=== PATIENT | female | born 1995 | race Caucasian/White ===

== ENCOUNTER 2018-01-23 18:18 | Emergency (ER) | payer OTHER ==
[2018-01-23 20:13] VITALS: BP 95/71
--- NOTE | 2018-01-23 20:25 | UC ---
Throat Pain/Nasal Soham HPI - HPI Summary HPI Summary: 23 year old woman comes in with a concern of sinusitis. She has facial tenderness and rhinorrhea. Mild sore throat. No fevers. The symptoms bothering her for 2 days. She tells me she has chronic rhinorrhea and it's been worse the last 2 days. No wheezing no shortness of breath. She does take an antihistamine and pseudoephedrine. - History of Current Complaint Chief Complaint: UCRespiratory Stated Complaint: SINUS COMPLAINT Time Seen by Provider: 01/23/18 20:09 Hx Last Menstrual Period: 02/09/18 Pain Intensity: 7 - Allergies/Home Medications Allergies/Adverse Reactions: Allergies Allergy/AdvReac Type Severity Reaction Status Date / Time No Known Allergies Allergy Verified 01/23/18 20:04 Home Medications: Home Medications L.acidoph,Paracasei, B.lactis [Probiotic] 1 each PO DAILY 01/23/18 [History Confirmed 01/23/18] Pseudoephedrine TAB* [Sudafed TAB*] 30 mg PO Q6H PRN 01/23/18 [History Confirmed 01/23/18] PMH/Surg Hx/FS Hx/Imm Hx Previously Healthy: Yes Other Respiratory History: SINUSITIS - Surgical History Surgical History: None - Family History Known Family History: Positive: Diabetes - father Negative: Cardiac Disease, Hypertension - Social History Alcohol Use: Occasionally Substance Use Type: None Smoking Status (MU): Never Smoked Tobacco Review of Systems Constitutional: Negative Skin: Negative Eyes: Negative ENT: Nasal Discharge, Sinus Congestion, Sinus Pain/Tenderness Respiratory: Negative Cardiovascular: Negative Gastrointestinal: Negative Genitourinary: Negative Motor: Negative Neurovascular: Negative, Decreased Sensation Musculoskeletal: Negative Neurological: Negative Psychological: Negative Is Patient Immunocompromised?: No All Other Systems Reviewed And Are Negative: Yes Physical Exam Triage Information Reviewed: Yes Appearance: Well-Appearing, No Pain Distress, Well-Nourished Vital Signs: Initial Vital Signs Temp 98.3 F 01/23/18 20:07 Pulse 73 01/23/18 20:07 Resp 16 01/23/18 20:07 BP 95/71 01/23/18 20:07 Pulse Ox 100 01/23/18 20:07 Vital Signs Reviewed: Yes Eyes: Positive: Conjunctiva Clear ENT: Positive: Pharyngeal erythema, Nasal congestion, Nasal drainage Neck exam: Normal Neck: Positive: Supple Respiratory Exam: Normal Respiratory: Positive: Lungs clear, Normal breath sounds Cardiovascular: Positive: RRR Musculoskeletal Exam: Normal Musculoskeletal: Positive: Strength Intact, ROM Intact Neurological Exam: Normal Neurological: Positive: Alert Psychological Exam: Normal Skin Exam: Normal Throat Pain/Nasal Course/Dx - Course Course Of Treatment: DISCUSSED VIRAL VERSES BACTERIAL INFECTION AND THE ROLE OF ANTIBIOTICS. THE PATIENT WISHES TO BE ON ANTIBIOTICS AT THIS TIME. - Differential Dx/Diagnosis Provider Diagnoses: SINUSITIS Discharge - Sign-Out/Discharge Documenting (check all that apply): Patient Departure All imaging exams completed and their final reports reviewed: No Studies - Discharge Plan Condition: Stable Disposition: HOME Prescriptions: Amoxicillin/Clavulanate TAB* [Augmentin TAB 875*] 875 mg PO BID #[id number] tab Patient Education Materials: Sinusitis (ED) Referrals: [facility] [Outside] Additional Instructions: FOLLOW UP WITH [facility]. GET RECHECKED FOR ANY WORSENING OF YOUR CONDITION OR QUESTIONS OR CONCERNS. - Billing Disposition and Condition Condition: STABLE Disposition: Home - Attestation Statements Document Initiated by Syedibhernan: Maribell
[2018-01-23] MEDS ORDERED: Amoxicillin/Clavulanate TAB* 875 MG PO ONE ×2 (20:26→20:36)
== END 2018-01-23 20:43 | disposition home or self-care (01) ==
LOC: UCCORT 18:18
DX: J32.9 Chronic sinusitis, unspecified (principal)
CPT/HCPCS: 99212; A9270-GY; G0463